=== PATIENT | female | born 1970 | race Caucasian/White ===

== ENCOUNTER → 2018-07-17 | Outpatient (CLI) | payer OTHER | LOC: COL.RAD 08:23 | DX: R10.11 Right upper quadrant pain (principal); Z87.19 Personal history of other diseases of the digestive system | CPT/HCPCS: A9537 ==

== ENCOUNTER 2018-08-14 09:22 | Day surgery (SDC) | payer OTHER ==
[~2018-08-14] VITALS: Ht 162.6 cm; Wt 143.2 kg
[2018-08-14] MEDS ORDERED: TOPAMAX50 MG PO (10:23)
[2018-08-14] MEDS ORDERED: ESTRACE 1MG1 MG/TAB PO (10:23)
[2018-08-14 10:24] VITALS: BP 145/99; PULSE 84; TEMP 97.7
--- NOTE | 2018-08-14 11:00 | NUR ---
Patient continues to await surgery. Family in room. IV fluids infusing.
--- NOTE | 2018-08-14 12:15 | NUR ---
Dr. Stringer to talk with the patient and informed the patient that surgery will be delayed. Patient assisted to the bathroom and returns to room. Warm blankets given and resting on cart with family at side.
[2018-08-14] MEDS ORDERED: MOTRIN 600600 MG/TAB PO (12:48)
[2018-08-14] MEDS ORDERED: NORCO 325 MG-51 TAB PO (12:49)
[2018-08-14] MEDS ORDERED: COLACE 100100 MG/CAP PO (12:49)
--- NOTE | 2018-08-14 13:02 | NUR ---
IC-GREEN GIVEN ORDERED BY DR. KRUEGER. PATIENT IS RESTING AND AWAITS SURGERY.
[2018-08-14 19:28] VITALS: TEMP 98.6
[2018-08-14 20:15] VITALS: BP 145/79; PULSE 70
--- NOTE | 2018-08-14 20:17 | NUR ---
Patient to the floor at 1999. States she felt the urge to void. Unsuccessful. Noted to be dizzy upon standing. Stand-by assist required. Ice chips and water at bedside. Patient educated on criteria for discharge. Verbalized understanding. States pain is manageable at this time. Educated to call when she needed pain medication or something to eat. Vitals stable. Will monitor.
[2018-08-14 20:30] VITALS: BP 161/92; PULSE 68
[2018-08-14 20:45] VITALS: BP 124/86; PULSE 73
[2018-08-14 21:00] VITALS: BP 137/69; PULSE 70
--- NOTE | 2018-08-14 22:41 | NUR ---
Patient ate jello and drank ice water and tolerated this well. Noted to void clear yellow urine. Stated pain 7/10 to abdomen. 1 tab [place] given. Patient educated about discharge instructions. All belongings sent with patient. Scripts were filled prior to patient coming to the floor. Denies any questions or further needs. Assisted to personal vehicle by wheelchair with family and surgical staff at [id number].
== END 2018-08-14 22:45 | disposition home or self-care (01) ==
LOC: SDCO 09:22
DX: K81.1 Chronic cholecystitis (principal); E66.01 Morbid (severe) obesity due to excess calories; Z68.43 Body mass index [BMI] 50.0-59.9, adult; Z90.710 Acquired absence of both cervix and uterus; Z82.3 Family history of stroke; Z80.9 Family history of malignant neoplasm, unspecified; Z91.013 Allergy to seafood; Z87.891 Personal history of nicotine dependence
CPT/HCPCS: J0330; J0690; J1100; J1885; J2405; J2550; J2704; J3010; J7120